=== PATIENT | male | born 1930 | race Caucasian/White ===

== ENCOUNTER 2017-06-26 10:53 | Outpatient (CLI) | payer MEDICARE ==
[2017-06-26 13:37] LABS: #Basophils 0.1 thou/uL (0.0-0.2); #Eosinphils 1.1 thou/uL (0.0-0.7); #Lymphocytes 3.4 thou/uL (1.20-3.40); #Monocytes 0.7 thou/uL (0.11-0.59); #Neutrophils 5.4 thou/uL (1.40-6.50); %Basophils 1.2 % (0.0-1.0); %Eosinophils 10.4 % (0.0-10.0); %Lymphocytes 31.7 % (21.0-51.0); %Monocytes 6.7 % (0.0-10.0); %Neutrophils 50.1 % (42.0-75.0); Hemoglobin 11.2 g/dL (14.0-18.0); Mean Corpuscular HGB CONC 31.8 g/dL (32.0-36.0); Mean Corpuscular Hemoglobin 29.5 pg (27.0-31.0); Mean Corpuscular Volume 92.8 fl (80.0-94.0); Mean Platelet Volume 5.5 fL (7.4-10.4); Platelet Count 336 thou/uL (130-400); RBC Distribution Width 13.1 % (11.5-14.5); Red Blood Cell (RBC) Count 3.81 mill/uL (4.70-6.10); White Blood Cell (WBC) Count 10.8 thou/uL (4.8-10.8)
[2017-06-26 13:46] LABS: PSA-Asymptomatic (SCREENING) 0.17 ng/mL (0-4.0); Thyroid Stimulating Hormone 1.7333 uIU/mL (0.35-4.94)
[2017-06-26 13:53] LABS: ALT (SGPT) 12 U/L (8-55); AST (SGOT) 15 U/L (5-34); Albumin 3.6 g/dL (3.4-4.8); Alkaline Phosphatase 105 U/L (40-150); Anion Gap 19 mmol/L (10-20); BUN (Urea Nitrogen) 39 mg/dL (8.4-25.7); Bilirubin, Direct 0.2 mg/dL (0.1-0.3); Bilirubin, Total 0.7 mg/dL (0.2-1.2); Calc. Creatinine Clearance 0 mL/min (70-130); Calcium 9.6 mg/dL (7.8-10.44); Carbon Dioxide 20 mmol/L (23-31); Cardiac Risk 5.1 (Less than 4.5); Chloride 104 mmol/L (98-107); Cholesterol 219 mg/dl (< 200 Desired); Estimated GFR-MDRD 39; Glucose 96 mg/dL (83-110); HDL Cholesterol 43 mg/dL (>60 Neg Risk); LDL Cholesterol, Calculated 150 mg/dL; Potassium 5.4 mmol/L (3.5-5.1); Sodium 138 mmol/L (136-145); Triglycerides 128 mg/dL (Less than 150)
[2017-06-26 14:03] LABS: Hemoglobin A1c 5.6 % (4.0-6.0)
[2017-06-26 14:09] LABS: Protein, Total 6.9 g/dL (5.8-8.1)
== END 2017-06-26 10:54 | disposition home or self-care (01) ==
LOC: NAVSJIPCSP 10:53
PROVIDERS: ATTEND Family Medicine
DX: Z12.5 Encounter for screening for malignant neoplasm of prostate (principal); I25.810 Atherosclerosis of coronary artery bypass graft(s) without angina pectoris; N99.89 Other postprocedural complications and disorders of genitourinary system; G62.9 Polyneuropathy, unspecified; I10 Essential (primary) hypertension; R33.8 Other retention of urine; Z79.899 Other long term (current) drug therapy
CPT/HCPCS: 36415; 80048; 80061; 80076; 83036; 83880; 84443; 85025; G0103

== ENCOUNTER 2017-10-16 14:20 | Emergency (ER) | payer MEDICARE ==
[2017-10-16] MEDS ORDERED: Sodium Chloride 0.9% 1,000 ML ONE ×2 (14:48→16:20)
[2017-10-16 15:25] LABS: Bilirubin Negative (Negative); Blood, Urine Small (Negative); Clarity Clear (Clear); Glucose, Urine (Dipstick) Negative (Negative); Leukocyte Small (Negative); Nitrite Negative (Negative); Protein, Urine (Dipstick) 100 mg/dL (Neg-Trace); Specific Gravity, Urine 1.015 (1.005-1.030); pH, Urine 5.5 (5.0-9.0)
[2017-10-16 15:48] LABS: Bacteria/HPF 3+ HPF (None Seen); Squamous Epithelial 0-3 HPF (0-3); WBC/HPF 21-50 HPF (0-3)
--- NOTE | 2017-10-16 15:50 | RAD ---
CHEST ONE VIEW: History: Rectal pain, altered mental status. FINDINGS: Lungs are clear. No pneumothorax or effusion. Cardiac silhouette and mediastinal contours are normal. There are calcifications of the aorta. IMPRESSION: No acute intrathoracic abnormality. POS: [id number]
[2017-10-16 16:01] LABS: Hemoglobin 10.2 g/dL (14.0-18.0); Mean Corpuscular HGB CONC 33.2 g/dL (32.0-36.0); Mean Corpuscular Hemoglobin 30.8 pg (27.0-31.0); Mean Corpuscular Volume 92.8 fl (80.0-94.0); Mean Platelet Volume 6.1 fL (7.4-10.4); Platelet Count 262 thou/uL (130-400); Red Blood Cell (RBC) Count 3.32 mill/uL (4.70-6.10); White Blood Cell (WBC) Count 16.2 thou/uL (4.8-10.8)
[2017-10-16 16:09] LABS: ALT (SGPT) 16 U/L (8-55); AST (SGOT) 31 U/L (5-34); Albumin 3.1 g/dL (3.4-4.8); Alkaline Phosphatase 96 U/L (40-150); Anion Gap 17 mmol/L (10-20); BUN (Urea Nitrogen) 56 mg/dL (8.4-25.7); Bilirubin, Total 0.9 mg/dL (0.2-1.2); Calc. Creatinine Clearance 0 mL/min (70-130); Calcium 9.3 mg/dL (7.8-10.44); Carbon Dioxide 21 mmol/L (23-31); Chloride 100 mmol/L (98-107); Estimated GFR-MDRD 27; Globulin 3.4 g/dL (2.4-3.5); Glucose 158 mg/dL (83-110); Potassium 4.7 mmol/L (3.5-5.1); Protein, Total 6.5 g/dL (5.8-8.1); Sodium 133 mmol/L (136-145)
[2017-10-16 16:11] LABS: INR-International Normal Ratio 1.6; PTT 36.2 SEC (22.9-36.1); Prothrombin Time 19.5 SEC (12.0-14.7)
[2017-10-16] MEDS ORDERED: Sodium Chloride 0.9% 100 ML ONE (16:20)
[2017-10-16] MEDS ORDERED: cefTRIAXone\\ROCEPHIN 2 GM VIAL ONE (16:20)
[2017-10-16 16:22] LABS: Band 16 % (5-11); Eosinophils 1 % (0-10); Lymphocytes 3 % (21-51); MDiff Complete? YES; Monocytes 3 % (0-10); Neutrophil 77 % (42-75); PLT Morphology Comment Appears Adequate; RBC Morphology Normal
[2017-10-16] MEDS ORDERED: Sodium Chloride 0.9% 250 ML 250 ML ONE (16:46)
[2017-10-16] MEDS ORDERED: HYDROcodone/Acetaminophen 5/325 mg Tablet ONE (16:47)
== END 2017-10-16 18:02 | disposition short-term general hospital (02) ==
LOC: NAV ERS 14:20
DX: N17.9 Acute kidney failure, unspecified (principal); N39.0 Urinary tract infection, site not specified; C78.5 Secondary malignant neoplasm of large intestine and rectum; I10 Essential (primary) hypertension; Z85.46 Personal history of malignant neoplasm of prostate; Z79.899 Other long term (current) drug therapy
CPT/HCPCS: 71045; 80053; 81003; 81015; 82274; 83605; 85025; 85610; 85730; 87040; 87077; 87086; 87186; 96361; 96365; 96367; J0696; J3370; J7050